=== PATIENT | female | born 1965 | race Caucasian/White ===

== ENCOUNTER 2016-11-19 17:05 | Emergency (ER) | payer MEDICAID ==
[~2016-11-19] VITALS: Ht 134.6 cm; Wt 92.5 kg
[2016-11-19 17:11] VITALS: BP 147/77
== END 2016-11-19 17:46 | disposition home or self-care (01) ==
LOC: ED 17:05
DX: J45.909 Unspecified asthma, uncomplicated (principal); J02.9 Acute pharyngitis, unspecified; Z79.899 Other long term (current) drug therapy

== ENCOUNTER 2016-11-21 20:05 | Emergency (ER) | payer MEDICAID ==
[2016-11-22 00:22] VITALS: BP 128/74
== END 2016-11-22 00:22 | disposition home or self-care (01) ==
LOC: ED 20:05
DX: J20.9 Acute bronchitis, unspecified (principal); H92.01 Otalgia, right ear
CPT/HCPCS: J7613; J7644; Q0092

== ENCOUNTER 2018-05-03 06:02 | Emergency (ER) | payer SELFPAY ==
[~2018-05-03] VITALS: Ht 167.6 cm; Wt 94.3 kg
[2018-05-03 06:08] VITALS: Ht 167.6 cm; Wt 94.3 kg
[2018-05-03 07:47] VITALS: BP 145/91
== END 2018-05-03 07:47 | disposition home or self-care (01) ==
LOC: ED 06:02
DX: J02.9 Acute pharyngitis, unspecified (principal); J98.01 Acute bronchospasm